=== PATIENT | male | born 1950 | race Caucasian/White ===

== ENCOUNTER → 2021-02-23 15:49 | Outpatient (CLI) | payer MEDICARE, SELFPAY ==
[2021-02-23 17:47] LABS: BUN Creatinine Ratio 26.6 (6-22); Blood Urea Nitrogen 21 mg/dL (9-20); Estimated Glomerular Filt Rate > 60.0 mL/min (>60)
== END ==
PROVIDERS: PCP Family Medicine; Referring Provider Specialist; Visit Provider Specialist
DX: R10.9 Unspecified abdominal pain (principal); Z01.812 Encounter for preprocedural laboratory examination
CPT/HCPCS: 36415; 82565; 84520

== ENCOUNTER → 2021-03-01 09:22 | Outpatient (CLI) | payer MEDICARE, SELFPAY ==
--- NOTE | 2021-03-01 09:23 | DI.CT.S_ITS ---
PROCEDURE: CT ABDOMEN PELVIS W CON INDICATIONS: left abdominal pain TECHNIQUE: After the administration of oral and intravenous contrast, 5 mm thick sections acquired from the diaphragms to the symphysis. 5 mm thick coronal and sagittal reformats were performed. For radiation dose reduction, the following was used: automated exposure control, adjustment of mA and/or kV according to patient size. COMPARISON: None. FINDINGS: Image quality: Excellent. ABDOMEN: Lung bases: Lung bases are clear. Heart size is normal. Solid organs: Liver is normal in size and enhancement. Gallbladder is normal. Biliary system is non-dilated. Pancreas enhances normally. Spleen is normal in size and enhancement. No adrenal nodules. Kidneys are normal in size and enhancement, without hydronephrosis. Peritoneum and bowel: Stomach, small bowel, and colon loops are normal in caliber and wall thickness. There is a large amount of stool in colon. No free fluid or air. Nodes and vessels: No retroperitoneal or mesenteric adenopathy. Aorta and inferior vena cava are normal in caliber. Miscellaneous: No ventral hernias. PELVIS: Genitourinary: Bladder wall thickness is normal. Prostate is enlarged. There is a 2.5 cm heterogeneous mass in the the bladder base. Miscellaneous: No inguinal hernias or adenopathy. Bones: No suspicious bony lesions. No vertebral body compression fractures. Degenerative disc and facet disease in lumbar spine. IMPRESSION: 1. No acute abnormalities in abdomen or pelvis. 2. A large amount of stool in colon. 3. Enlarged prostate. There is a 2.5 cm heterogeneous mass in the bladder base, most likely caused by enlarged prostate extruding into the bladder base. Please correlate with PSA. Recommend urological consultation. Dictated by: Stephanie Gaines M.D. on 03/01/2021 at 11:42 Approved by: Stephanie Gaines M.D. on 03/01/2021 at 12:30
== END ==
PROVIDERS: PCP Family Medicine; Referring Provider Specialist; Visit Provider Specialist
DX: K56.41 Fecal impaction (principal); R97.20 Elevated prostate specific antigen [PSA]
CPT/HCPCS: 74177

== ENCOUNTER → 2021-03-22 12:04 | Outpatient (CLI) | payer MEDICARE, SELFPAY ==
[2021-03-22 22:02] LABS: COVID19 - ORCAS (NP or Nasal) Negative (Negative)
== END ==
PROVIDERS: PCP Family Medicine; Visit Provider Physician Assistant Medical
DX: Z01.812 Encounter for preprocedural laboratory examination (principal); Z20.822 Contact with and (suspected) exposure to COVID-19
CPT/HCPCS: U0003

== ENCOUNTER → 2021-04-12 11:45 | Outpatient (CLI) | payer MEDICARE, SELFPAY ==
[2021-04-12 19:47] LABS: COVID19 - ORCAS (NP or Nasal) Negative (Negative)
== END ==
PROVIDERS: PCP Family Medicine; Visit Provider Physician Assistant Medical
DX: Z20.822 Contact with and (suspected) exposure to COVID-19 (principal)
CPT/HCPCS: U0003

== ENCOUNTER 2021-04-14 06:25 | Day surgery (SDC) | payer MEDICARE, SELFPAY ==
[2021-04-14 07:16] VITALS: BP 116/73; PULSE 57; RESP 12; TEMP 36.4; O2SAT 99
[2021-04-14] MEDS: LACTATED RINGERS 1,000 ML 200 ML IV (07:33)
--- NOTE | 2021-04-14 07:45 | PM.HP.1 ---
History of Present Illness History of Present Illness Date Patient Seen: 04/14/21 Time Patient Seen: 07:46 Chief complaint: SDC Narrative: The patient is here for his 1st colonoscopy. He has been having left lower quadrant pain. Has improved with time. Patient History Surgical History Hx of hernia repair Family & Social History Family History Mother Hypertension Grandmother Diabetes mellitus Sister Diabetes mellitus Social History: household members significant other Tobacco & Substance use: Smoking Status Never smoker alcohol intake current alcohol intake frequency 0-2 drinks per day Substance Use Type does not use Meds Home Medications and Allergies Home Medications Medication Instructions Recorded Confirmed Type ascorbate calcium (vitamin C) 500 500 mg PO DAILY 02/23/21 04/14/21 History mg tablet aspirin 325 mg tablet 325 mg PO DAILY 02/23/21 04/14/21 History cholecalciferol (vitamin D3) 25 25 mcg PO DAILY 02/23/21 04/14/21 History mcg (1,000 unit) capsule lactobacillus combination no.9 4 4,000 mmu cells PO DAILY 02/23/21 04/14/21 History billion cell capsule tamsulosin 0.4 mg capsule 0.4 mg PO BEDTIME 02/23/21 04/14/21 History zinc 50 mg tablet 50 mg PO DAILY 02/23/21 04/14/21 History Allergies Allergy/AdvReac Type Severity Reaction Status Date / Time Sulfa (Sulfonamide Allergy Severe lips Verified 04/14/21 07:10 Antibiotics) swelled [SULFA (SULFONAMIDE and peeled ANTIBIOTICS)] Review of Systems Review of Systems ROS: Yes All systems reviewed with the patient and are negative except as otherwise documented Exam Vital Signs (past 8 hours): - 04/14/21 07:16 Temperature 97.5 F L Pulse Rate 57 L Respiratory Rate 12 Blood Pressure 116/73 Pulse Oximetry 99 Oxygen Delivery Method Room Air Narrative Exam Narrative: Pleasant cooperative patient no apparent distress. Lungs are clear to auscultation. No rales or rhonchi. Heart regular rate and rhythm no murmur gallop. Abdomen is soft nontender without mass. No obvious hernias. Patient is alert and oriented x3. Assessment & Plan Assessment & Plan narrative: The patient for a screening colonoscopy. I have discussed the procedure with them. Risks of bleeding, perforation which would necessitate major operation, failure to find remove all lesions, the potential tattoo were all discussed. All questions were answered. They wished to proceed.
--- NOTE | 2021-04-14 07:47 | PM.PREOP ---
Pre-operative Note COVID-19 COVID-19 status: Negative Result date/Date tested (Pos, Neg/Pending): 04/12/21 Interval Note History & Physical reviewed/Exam performed by Physician: Yes Changes to H&P: No ASA Class (for procedural sedation): I
[2021-04-14] MEDS: fentaNYL 250 MCG/5 ML INJ IV (08:05)
[2021-04-14] MEDS: MIDAZOLAM 5 MG/5 ML VIAL IV (08:05)
--- NOTE | 2021-04-14 08:20 | PM.OP.ENDO ---
Operative Date/Time/Diagnoses Date of procedure: 04/14/21 Time of procedure: 08:20 Pre-op diagnosis: Screening examination. Left lower quadrant pain. This is his 1st colonoscopy. Post-op diagnosis: same (Rare diverticulosis. No cause of left lower quadrant pain found on this exam.) Procedure & Clinicians Study performed: Colonoscopy Same procedure as scheduled: Yes Indications: Screening. Left lower quadrant pain. Surgeon: Gabriel Clayton Procedure Notes SCOAP/Timeout: Performed Procedure in detail: The patient was placed in the left lateral decubitus position and underwent IV sedation directed by the surgeon consisting of fentanyl and Versed. Digital exam was unremarkable. Despite the findings on CT scan of enlarged prostate I really could not feel much enlargement on rectal exam suggesting a large median lobe.. The scope was inserted and advanced through the rectum into the sigmoid, descending, transverse, and ascending colon. No lesions were seen. The cecum was reached identified by the ileocecal valve and the appendiceal opening. The ileocecal valve was successfully cannulated. The terminal ileum was normal in appearance. The scope was gradually brought out. No Polyps were found. One diverticulum was seen in the sigmoid. The scope ultimately was retroflexed in the rectum. The appearance was remarkable for internal hemorrhoids without ulceration.. The scope was removed and the patient tolerated the procedure well. Prep was adequate once fluid was suctioned. Scope withdrawal time: Almost 10 minutes Sedation minutes: 22 Findings: diverticulosis (Rare) Specimen(s): none sent Complications: none Post-procedure Recommendations: Colonscopy in 10 years Follow up: as needed Disposition: PACU
[2021-04-14 08:22] VITALS: BP 106/60; BP 108/60; PULSE 53; PULSE 54; RESP 16; TEMP 36.7; O2SAT 98
[2021-04-14 08:27] VITALS: BP 104/50; PULSE 54; RESP 16; O2SAT 98
[2021-04-14 08:32] VITALS: BP 108/50; PULSE 58; RESP 16; O2SAT 98
[2021-04-14 08:51] VITALS: BP 111/70; PULSE 59; RESP 16; TEMP 36.7; O2SAT 98
[2021-04-14 08:55] VITALS: BP 110/67; PULSE 52; RESP 16; TEMP 36.1; O2SAT 98
== END 2021-04-14 09:04 | disposition home or self-care (01) ==
PROVIDERS: PCP Family Medicine; Referring Provider Specialist; Visit Provider Specialist
PROC: 0DJD8ZZ Inspection of Lower Intestinal Tract, Via Natural or Artificial Opening Endoscopic (ICD-10-PCS; CPT 45378; principal; 2021-04-14 07:45)
DX: R10.32 Left lower quadrant pain (principal); K57.30 Diverticulosis of large intestine without perforation or abscess without bleeding
CPT/HCPCS: 45378; 99152; J2250; J3010